=== PATIENT | female | born 1975 | race Caucasian/White ===

== ENCOUNTER → 2025-04-08 14:08 | Outpatient (REF) | payer OTHER, SELFPAY | LOC: HWWDC 14:08 | PROVIDERS: ATTENDING PHYSICIAN Registered Nurse; FAMILY PHYSICIAN Internal Medicine | DX: Z12.31 Encounter for screening mammogram for malignant neoplasm of breast (principal) | CPT/HCPCS: 77063; 77067 ==

== ENCOUNTER → 2025-09-24 18:23 | Outpatient (REF) | payer OTHER, SELFPAY | LOC: MRI 3T 18:23 | PROVIDERS: ATTENDING PHYSICIAN Physician Assistant; FAMILY PHYSICIAN Internal Medicine | DX: S83.242A Other tear of medial meniscus, current injury, left knee, initial encounter (principal) | CPT/HCPCS: 73721 ==